=== PATIENT | male | born 1965 | race Caucasian/White ===

== ENCOUNTER 2022-01-18 03:40 | Inpatient (IN) | payer OTHER, SELFPAY ==
[2022-01-18] VITALS (19 sets, daily range): BP systolic 116–189; BP diastolic 71–105; PULSE 56–91; RESP 10–19; TEMP 37; O2SAT 88–96; BMI 28.8
--- NOTE | 2022-01-18 03:41 | XRR_ITS ---
PROCEDURE INFORMATION: Exam: XR Chest Exam date and time: 01/18/2022 3:36 AM Age: 56 years old Clinical indication: Pain and abnormal findings; Abnormal ekg; Chest pressure; Patient HX: Left sided chest pain with diaphoresis. St elevation on 12 lead. ; Additional info: Cp TECHNIQUE: Imaging protocol: XR of the chest. Views: 1 view. COMPARISON: No relevant prior studies available. FINDINGS: Lungs: The lung parenchyma is clear. Pleural spaces: No pneumothorax. No pleural effusion. Heart/Mediastinum: The cardiomediastinal silhouette is within normal limits. Bones/joints: Unremarkable. XR/XR chest 1V portable [id number] IMPRESSION: No acute cardiopulmonary abnormality.
--- NOTE | 2022-01-18 03:42 | ECG_ITS ---
[facility] Test Date: 2022-01-18 Pat Name: Meir Ramsay Department: Room: [facility] Gender: Male Clinical Trial Educator: : 1965 Requested By: Lizabeth Burr Order Number: [id number] Evelyne MD: Iram Albright M.D. Measurements Intervals [place] Rate: 56 P: 63 AL: 178 QRS: 22 QRSD: 132 T: 81 QT: 508 QTc: 491 Interpretive Statements SINUS BRADYCARDIA WITH SINUS ARRHYTHMIA INTRAVENTRICULAR CONDUCTION DELAY [130+ ms QRS DURATION] ST ELEVATION, CONSIDER LATERAL INJURY [MARKED ST ELEVATION W/O NORMALLY INFLECTED T-WAVE IN I/aVL/V5/V6] MARKED ST ELEVATION, CONSIDER INFERIOR INJURY [MARKED ST ELEVATION W/O NORMALLY INFLECTED T-WAVE IN II/aVF] ACUTE [place] No previous ECG available for comparison Electronically Signed On 01-19-2022 11:44:26 CDT by Iram Albright M.D. [id number]
--- NOTE | 2022-01-18 03:43 | ED_ITS ---
HPI - Chest Pain General: Chief Complaint: Chest Pain Stated Complaint: stemi Time Seen by Provider: 01/18/22 03:41 Source: patient and EMS Mode of arrival: EMS Limitations: no limitations History of Present Illness: 56-year-old male states that roughly 2 hours ago he started having chest pain was severe in nature along with diaphoresis and nausea. Patient was brought in EMS under a STEMI alert he has been receiving nitro along with morphine states his pain is improved but still having pain he rates a 2 out of 10 patient is still diaphoretic he is a longtime smoker denies any history of known heart disease. Associated symptoms: Deny abdominal pain, dyspnea, fever(s), nausea or vomiting Review of Systems Const: Denies: fever(s), chills, body aches or change in appetite Eyes: Denies: blurry vision or eye discomfort ENMT: Denies: throat pain or dental pain Card: Reports: chest pain Resp: Denies: dyspnea GI: Denies: abdominal pain, nausea, vomiting or diarrhea : Denies: dysuria Musc: Denies: neck pain or back pain Skin/Breast: Denies: rash Neuro: Denies: headache(s) Psych: Denies: depression Willi/Lymph: Denies: easy bruising All/Imm: Denies: urticaria Physical Exam Const: COMMON NORMALS: patient oriented x3 GENERAL APPEARANCE: in distress OTHER: diaphoretic HENMT: COMMON NORMALS: normocephalic and atraumatic HEAD & SCALP: normocephalic and atraumatic Eye: COMMON NORMALS: Equal, round and reactive pupils present and EOMs intact bilaterally PUPIL: Yes Equal, round and reactive pupils present Neck/C-Spine: COMMON NORMALS: full ROM and supple Chest: COMMONS NORMALS: normal inspection of the chest and normal palpation of entire chest wall Resp: COMMON NORMALS: normal respiratory effort, No retractions, No use of accessory muscles and clear to auscultation bilaterally AUSCULTATION: clear to auscultation bilaterally Cardio: COMMON NORMALS: regular rate, regular rhythm and No murmurs present (Cardio) RATE: regular rate RHYTHM: regular rhythm GI: COMMON NORMALS: Normal to inspection, nondistended, normoactive bowel soun ds present, Soft to palpation, non-tender and no masses PALPATION: Yes Soft to palpation Extremity: COMMON NORMALS: normal to inspection and full ROM Neuro: COMMON NORMALS: patient oriented x3, moves all extremities and no focal motor deficits Psych: COMMON NORMALS: mental status grossly normal, Normal thought process present and cooperative THOUGHT PROCESS: Normal thought process present Skin: COMMON NORMALS: no rashes or lesions noted and no wounds GENERAL SKIN EXAM: no rashes or lesions noted Course Vital Signs: Vital signs: Vital Signs Temperature 98.6 F 01/18/22 03:44 Pulse Rate 59 L 01/18/22 03:44 Respiratory Rate 16 01/18/22 03:44 Blood Pressure 128/73 01/18/22 03:44 Pulse Oximetry 96 01/18/22 03:44 MDM - Chest Pain Medical Decision Making Patient presents here with an ST elevation [place] Horizontal Boring Mill Operator has been in called Dr. Vasques is here at 355 patient given heparin and Plavix and will transfer to the Horizontal Boring Mill Operator EKG Data EKG 1: I personally reviewed and interpreted this EKG as follows: EKG interpretation date: 01/18/22 EKG interpretation time: 03:48 Interpretation: sinus carly hr 56 st elevation II, III,AVF stemi qrs 132 qtc 499 Critical Care Time Critical Care Time: Critical Care Time: Yes Total Critical Care Time: 35 Attestation: The high probability of a clinically significant, sudden or life threatening deterioration of the patient's cv system(s) required my full and direct attention, intervention and personal management. The critical care time is as shown. This time is in addition to time spent performing any reported procedures but includes the following: [x] Data and vital sign review and interpretation [x] Patient assessment, examination and intervention [x] Documentation [x] Medication orders and management Discharge Plan Discharge Patient Disposition: Admitted As Inpatient Clinical Impression: ST elevation (STEMI) myocardial infarction Qualifiers: Involved coronary artery: unspecified coronary artery Qualified Code(s): I21.3 - ST elevation (STEMI) myocardial infarction of unspecified site Condition: Stable Coding Level of Care Code ED Waterproof Material Folder for Adwoa Leong Exam Comprehensive
[2022-01-18] MEDS: aspirin 325 mg Tablet PO (03:45)
[2022-01-18] MEDS: heparin 5,000 unit/mL INJ 1 mL 4000 UNIT IVP (03:45)
[2022-01-18] MEDS: clopidogrel 300 mg Tablet 600 MG PO (03:45)
[2022-01-18] MEDS: sodium chloride 0.9% 500 ML 999 ML IV (03:48)
[2022-01-18] MEDS: sodium chloride 0.9% 1,000 ML 999 ML IV (03:48)
[2022-01-18] MEDS: morphine 4 mg/mL SDV 1 mL IVP ×2 (03:51→04:11)
[2022-01-18] MEDS: ondansetron 2 mg/ML SDV 2 mL 4 MG IVP (03:51)
--- NOTE | 2022-01-18 04:02 | PM.HP ---
Providers/Chief Complaint Admitting Physician: Erick William MD Primary Care Provider: Sameer Dash MD Chief Complaint: stemi History of Present Illness Meir Ramsay is a 56 year old male with no known prior cardiac history has presented with 2 hours of substernal chest pain. It is severe in intensity. Patient also has nausea. Pain has improved since getting morphine by EMS. According to patient since last morning he had been having on and off heartburn sensation in the epigastric region. EKG shows ST elevations in inferior and anterolateral leads. Patient was taken to the cardiac Gas Station Manager emergently. Review of Systems Const: Denies: fever(s), chills, body aches or change in appetite Eyes: Denies: blurry vision or eye discomfort ENMT: Denies: throat pain or dental pain Card: Reports: chest pain Resp: Denies: dyspnea GI: Denies: abdominal pain, nausea, vomiting or diarrhea : Denies: dysuria Musc: Denies: neck pain or back pain Skin/Breast: Denies: rash Neuro: Denies: headache(s) Psych: Denies: depression Willi/Lymph: Denies: easy bruising All/Imm: Denies: urticaria Medications/Allergies Allergies Allergy/AdvReac Type Severity Reaction Status Date / Time No Known Allergies Allergy Verified 01/18/22 03:45 PFSH Acute PFSH: Medical History Hypertension Tobacco abuse Social History Smoking and tobacco status: current every day smoker Vitals/I&O/Wt Last Vital Signs Temp 98.6 F 01/18/22 03:44 Pulse 56 L 01/18/22 04:00 Resp 16 01/18/22 04:00 BP 116/71 01/18/22 04:00 Pulse Ox 96 01/18/22 04:00 Weight last 48 hrs Weight 195 lb Physical Exam Narrative: GENERAL: Patient is alert, awake and oriented x3. [] NECK: No jugular vein distension. [] HEENT: No cyanosis. No icterus. No pallor. [] HEART: Regular S1 and S2. No murmur, rub or gallop. [] LUNGS: Clear to auscultate bilaterally. [] ABDOMEN: Soft, nontender and nondistended. Positive bowel sounds. No guarding, rebound or tenderness. [] CENTRAL NERVOUS SYSTEM: Grossly nonfocal. [] EXTREMITIES: Lower extremities with no edema bilaterally. Pulses palpable in the lower extremities, both dorsalis pedis and posterior tibial. [] A&P Assessment and plan (1) ST elevation (STEMI) myocardial infarction: Status: Acute Qualifiers: Involved coronary artery: unspecified coronary artery Qualified Code(s): I21.3 - ST elevation (STEMI) myocardial infarction of unspecified site (2) Tobacco abuse: Status: Acute (3) Hypertension: Status: Acute Plan Patient has presented with acute ST elevation [place]. He was emergently taken to the cardiac Gas Station Manager for coronary angiogram. Patient underwent coronary angiogram that showed total thrombotic occlusion of left circumflex artery. He underwent successful revascularization with IVÁN x1. Proximal LAD has moderate disease. It will be evaluated with stress test later. Continue aspirin and Plavix for at least 1 year. High intensity statin therapy. Beta-osbaldo and ORTIZ inhibitor's. Order echocardiogram. Transfer to ICU Attestations Medical Necessity Statement*: Care expected to cross 2 midnights. Patient has presented with acute inferior wall ST elevatation Coding Level of Care Code Acute Associate Professor Of Chemistry for Adwoa Leong Diagnoses ST elevation (STEMI) myocardial infarction I21.3 Involved coronary artery: unspecified coronary artery Tobacco abuse Z72.0 Hypertension I10
[2022-01-18 04:07] LABS: Troponin(5th) Baseline 30 ng/L (0-15)
--- NOTE | 2022-01-18 04:08 | XACV_ITS ---
Exam Room: 2 Ht: 175 cm Wt: 134 kg BSA: 2.62 m2 Gender: Male : 1965 Any Known Allergies: No known allergies Exam Priority: Routine Procedure(s): Procedure Description: Diagnostic procedure Procedure Description: PCI procedure Procedure Description: Drug Eluting Coronary Stent Procedure Description: PTCA Procedure Description: Coronary Angiography Diagnostic Cath Status: Emergency Diagnostic Findings * Right Coronary Artery has mild to moderate diffuse disease. * Proximal Left Anterior Descending: moderate 60% stenosis, DARIO: 3 flow. * Mid Circumflex: total thrombotic occlusion, DARIO: 0 flow. * INDICATION:56 year old male with no known prior cardiac history has presented with 2 hours of substernal chest pain. It is severe in intensity. Patient also has nausea. Pain has improved since getting morphine by EMS. According to patient since last morning he had been having on and off heartburn sensation in the epigastric region. EKG shows ST elevations in inferior and anterolateral leads. . * Left Main has no disease. * Coronary angiography shows right dominance. PCI Status: Emergency PCI Indication: Immediate PCI for STEMI Interventional Findings * PROCEDURE DETAIL:We engaged left main artery with XB 3.0 guide catheter. IV heparin was used to maintain an ACT above 250 S. 0.014 run-through guidewire was used to cross totally occluded mid left circumflex artery segment. We will predilated the stenosis with 2.5 x 12 mm noncompliant balloon. This was followed by placement of 3.5 x 15mm resolute [place] drug-eluting stent. At this time final angiogram was performed that showed excellent stent expansion, DARIO-3 flow and no residual stenosis. Guidewire and guide catheters were removed. Patient left the Slope Hoist Operator in a stable condition.. * Mid Circumflex: 100% stenosis treated with a AB TREK 2.50X12 RX BALLOON, and MDT Patti FABY 3.5X15 IVÁN. 0% residual stenosis, DARIO: 3 flow. Conclusions 1. Total thrombotic occlusion of the mid Left circumflex artrey status post successful revascularization with IVÁN x1.. 2. Moderate proximal LAD stenosis. Will be assessed with outpatient stress test. 3. Mid Circumflex was treated with a Balloon, and Drug Eluting Stent. Recommendations * Transfer to ICU. * Continue aspirin and Plavix for at least 1 year. * High intensity statin therapy. * Beta-osbaldo and ORTIZ inhibitor therapy. * Outpatient cardiology follow-up in 4 weeks. * Cardiac rehab referral. Interventional RX Recommendation: PCI w/o planned CABG Diagnostic RX Recommendation: PCI w/o planned CABG Anticoagulation: Heparin Pressures Phase:Rest AO : 144 / 78 ( 109 ) @ 5:26:00 AM 121 / 91 ( 107 ) @ 5:30:00 AM Clinical Evaluation EBL: 5mL-10mL Procedural Details Pre-Procedure Time Out. Identified patient by full name and date of as verbalized by the patient/guarantor. Does the consent match the physician's order: N/A Emergent; Informed Consent not obtained due to time critical life threat. Accurate & Complete Informed Consent: N/A Emergent; Informed Consent not obtained due to time critical life threat. Inpatient/Outpatient History & Physical on Chart: N/A Emergent; Informed Consent not obtained due to time critical life threat. If H&P is completed, is and addenduem needed: N/A Emergent; Informed Consent not obtained due to time critical life threat; If yes, is the addendum complete: N/A Emergent; Informed Consent not obtained due to time critical life threat. Visualize and Verify Site with Patient/Guarantor: N/A. Relevant Radiology Images available: N/A Emergent; Informed Consent not obtained due to time critical life threat. The risks, benefits, and alternatives of sedation and/or procedure were discussed by physician. The patient agrees to continue. Procedure started. [facility] Clinical Fraility Score: 3: Managing Well. Slope Hoist Operator Indications: ACS <= 24 hours. Chest Pain Symptom Assessment: Typical Angina Symptoms. Cardiovascular Instability: Yes, if yes, Persistant Ischemic Symptoms. Correct patient, site and procedure confirmed by cath team. Current diagnosis: STEMI. PERRLA. Strong, equal hand immigration specialist bilaterally. Lungs clear x 5 lobes. IV Site on Arrival: 18 gauge in the right anticubital. IV Site on Arrival: 18 gauge in the left anticubital. IV Fluids: 0.9% NaCl at KVO. 0 mL infused prior to recyclable materials sorter. Oxygen started at 2liters/min via nasal canula. right groin was prepped with chloroprep then draped in the usual sterile fashion. right radial was prepped with chloroprep then draped in the usual sterile fashion. Baseline sample Acquired. HR: 72 BPM. Physician notified. Baseline sample Acquired. HR: 74 BPM. Physician arrived. Physician scrubbed in. Immediate Pre-Procedure Time Out. Correct Patient: Yes; Correct Procedure: Yes; Correct Site: Yes; Correct Patient Position: Yes; Correct Supplies: Yes; Dried Flammable Prep: Yes; Blood Products Available: N/A;. Lidocaine 1% infiltrated to the right radial. Arterial access obtained. 6 tur[place] ca[place] islander JR 4 guide catheter was inserted over the wire. cine of the RCA performed. Guide catheter out. 6 tur[place] islander XB 3.5 guide catheter was inserted over the wire. Inflation number : 1 A AB TREK 2.50X12 RX BALLOON was prepped and advanced across the Mid CX , then inflated to 8 LAURA for 0:18 seconds. Inflation number: 2 The AB TREK 2.50X12 RX BALLOON was reinflated across the Mid CX, to 12 LAURA for 0:08 seconds. Balloon out. Results checked. Inflation Number : 3 A XAVI Armstrong FABY 3.5X15 IVÁN -Lot Number# [id number] was prepped and advanced across the Mid CX. The stent was deployed at 14 LAURA for 0:23 seconds. EXP 2024-11-02. Stent balloon out over wire. Results checked. Wire out. Guide catheter out. ACT drawn. Results 223 seconds. Therapeutic limits - pre-heparin administration 90-150 seconds and monitoring heparin during a vascular procedure >250 seconds. 6 tur[place] islander JR 4 guide catheter was inserted over the wire. PCI Indication : Immediate PCI for STEMI. cine of the RCA performed. Guide catheter out. Dr. William scrubbed out. TR band placed. Hemostasis obtained. A TR Band was successful obtaining hemostatsis at the Right Radial artery insertion site. PERRLA. Strong, equal hand immigration specialist bilaterally. No VTE prophylaxis required. Medication's Wasted: Lidocaine 1% = 5 mL. Medication's Wasted: Nitro = 49.8 mg. Medication's Wasted: Heparin = 4000 units. Total IV fluids: 64 mL. PCI Indication: STEMI. Post-op diagnosis: PCI of the Mid CX. Complications: none. Estimated blood loss: 5mL-10mL. Responsiveness - Normal response to verbal stimuli; alert and oriented, PERRLA. Airway - Unaffected, no intervention required; spontaneous ventilation. Circulation: W/N/L, pulses unchanged. Nausea/Vomiting: No. Procedure completed. Patient transferred by bed to ICU. Vital chart was stopped. Access Site Site: Right Radial artery Sheath Size: 6 Fr Hemostasis Method: TR Band Hemostasis Success: Successful Procedure Medications Start: 4:20 AM Stop: 4:20 AM Medication: Versed Amount: 1 mg Route: I.V. Start: 4:20 AM Stop: 4:20 AM Medication: Fentanyl Amount: 50 mcg Route: I.V. Start: 4:21 AM Stop: 4:21 AM Medication: Nitrogylcerin Amount: 200 mcg Route: I.A. Start: 4:23 AM Stop: 4:23 AM Medication: Heparin Amount: 6000 units Route: I.V. Start: 4:25 AM Stop: 4:25 AM Medication: Versed Amount: 1 mg Route: I.V. Start: 4:39 AM Stop: 4:39 AM Medication: Heparin Amount: 2000 units Route: I.V. I, the attending physician, have reviewed and verified all procedure medications. Yes, all medications given per verbal order Report Signatures Finalized by Erick William MD on 01/18/2022 09:46 AM
--- NOTE | 2022-01-18 04:10 | PC.NURSE ---
Cath team at bedside at this time
--- NOTE | 2022-01-18 04:12 | PC.NURSE ---
flower shop laborer/designer transporting patient to flower shop laborer/designer.
--- NOTE | 2022-01-18 05:35 | USCV_ITS ---
Meir Ramsay Age: 56 Gender: M : 1965 Exam Date: 01/18/2022 09:24 Ordering Phys: Erick William M.D ([email or web address]) Technologist: DLEILAH Exam Location: [facility] [place] Indication: post STEMI; no hx cardiac intervention BP: 157 / 99 HR: 69 Rhythm: Sinus Technical Quality: Adequate MEASUREMENTS (Male / Female) Normal Values 2D ECHO LV Diastolic Diameter PLAX 5.3 cm 4.2 - 5.9 / 3.9 - 5.3 cm LV Systolic Diameter PLAX 3.5 cm IVS Diastolic Thickness 1.5 cm 0.6 - 1.0 / 0.6 - 0.9 cm IVS Systolic Thickness 2.3 cm LVPW Diastolic Thickness 1.5 cm 0.6 - 1.0 / 0.6 - 0.9 cm LVPW Systolic Thickness 1.6 cm LVOT Diameter 2.0 cm LV Ejection Fraction 2D Teich 63.5 % LV Ejection Fraction MOD 2C 57.8 % LV Ejection Fraction 2C AL 57.5 % LA Diameter 3.8 cm LA Width 3.0 cm LA Height 4.8 cm RA Width 3.6 cm RA Height 3.6 cm Aorta at Sinotubular Diameter 3.2 cm IVC Diameter 2.0 cm M-MODE Aortic Annulus Diameter 3.6 cm LA Ao Ratio MM 1.0 MV E Point Septal Separation 0.3 cm DOPPLER AV Peak Velocity 124.0 cm/s LVOT Peak Velocity 67.0 cm/s AV Area Cont Eq vti 1.8 cm squared AV Area Cont Eq pk 1.7 cm squared MV Area PHT 3.7 cm squared Mitral E to A Ratio 0.7 MV E' Velocity 34.0 cm/s Mitral E to MV E' Ratio 8.6 Mitral E to LV E' Lateral Ratio 8.2 Mitral E to LV E' Septal Ratio 9.1 TR Peak Velocity 253.0 cm/s TR Peak Gradient 25.6 mmHg TV Peak E Velocity 49.0 cm/s Right Atrial Pressure 5.0 mmHg Pulmonary Artery Systolic Pressu 30.6 mmHg PV Peak Velocity 86.0 cm/s FINDINGS Left Ventricle Normal left ventricular size. LV systolic function is normal with EF of 50-55%.No regional wall motion abnormalities. Grade 1 diastolic dysfunction Right Ventricle The right ventricle is normal in size and function. Right Atrium The right atrium is normal in size. Left Atrium The left atrium is normal in size. Mitral Valve Structurally normal mitral valve without significant stenosis or prolapse. There is mild mitral regurgitation. Aortic Valve Structurally normal aortic valve without significant sclerosis or stenosis. There is no aortic regurgitation. Tricuspid Valve Structurally normal tricuspid valve without significant stenosis. Mild tricuspid regurgitation. Insufficient TR jet to calculate RVSP Pulmonic Valve Not well visualized Pericardium Normal pericardium without effusion. Aorta Normal ascending aorta dimension. IVC CONCLUSIONS LV systolic function is normal with EF of 50-55% Grade 1 diastolic dysfunction Mild mitral regurgitation Mild tricuspid regurgitation No comparison studies are available Erick William MD (Electronically Signed) Final Date: 18 Jan 2022 12:33 S
--- NOTE | 2022-01-18 05:42 | ECG_ITS ---
[facility] Test Date: 2022-01-18 Pat Name: Meir Ramsay Department: Room: [facility]08 Gender: Male Herpetology Teacher: : 1965 Requested By: Lizabeth Burr Order Number: [id number] Evelyne MD: Iram Albright M.D. Measurements Intervals [place] Rate: 77 P: 77 MI: 150 QRS: -74 QRSD: 125 T: 75 QT: 430 QTc: 487 Interpretive Statements SINUS RHYTHM RIGHT BUNDLE BRANCH BLOCK LEFT ANTERIOR FASCICULAR BLOCK MODERATE T-WAVE ABNORMALITY, CONSIDER LATERAL ISCHEMIA Compared to ECG 01/18/2022 03:48:58 Right bundle-branch block now present Left anterior fascicular block now present T-wave abnormality now present Possible ischemia now present Sinus bradycardia no longer present ST (T wave) deviation no longer present Myocardial infarct finding no longer present Electronically Signed On 01-18-2022 22:09:36 CDT by Iram Albright M.D. [id number]
[2022-01-18] MEDS: sodium chloride 0.9% 1,000 ML 100 ML IV (05:56)
[2022-01-18 06:28] LABS: Basophils % 0.3 %; Eosinophils % 0.1 %; Hematocrit 47.3 % (42.0-52.0); Hemoglobin 15.8 g/dL (11.7-16.6); Lymphocytes # 1.2 10^3/uL (0.8-4.8); Mean Corpuscular HGB Conc 33.4 g/dL (30.0-36.0); Mean Corpuscular Hemoglobin 31.5 pg (28.0-34.0); Mean Corpuscular Volume 94.2 fl (80-94); Mean Platelet Volume 10.1 fL (7.4-10.4); Monocytes # 0.6 10^3/uL (0.2-0.9); Monocytes % 6.3 %; Neutrophils % 80.8 %; Nucleated Red Blood Cells % 0 %; Platelet Count 188 10^3/cmm (130-400); Red Blood Count 5.02 10^6/uL (4.1-5.3); White Blood Count 9.7 10^3/uL (4.0-10.0)
[2022-01-18] MEDS: metoprolol tartrate 25 mg Tablet PO ×2 (07:03→18:05)
[2022-01-18 07:05] LABS: Anion Gap 17.7 (5-19); Blood Urea Nitrogen 12 mg/dL (6-20); Calcium 8.7 mg/dL (8.5-10.5); Carbon Dioxide 17 mmol/L (22-29); Chloride 98 mmol/L (98-107); Chol HDL Ratio 4.53 mg/dL (1.0-5.00); Cholesterol 163 mg/dL (0-200); Estmated Average Glucose 143; Glomerular Filtration Rate 99.3 mL/min (90-130); Glucose 163 mg/dL (65-115); HDL Cholesterol 36 mg/dL (60-100); Hemoglobin A1C 6.6 % (4.0-6.0); LDL Cholesterol Calculated 106 mg/dL (50-129); LDL HDL Ratio 2.94 RATIO (0.00-3.22); Osmolality Calculated 271 mOsm/kg (285-295); Potassium 3.7 mmol/L (3.5-5.1); Sodium 129 mmol/L (136-145); Triglycerides 105 mg/dL (0-150)
[2022-01-18 07:21] LABS: Troponin 5 2HR 1822 ng/L (0-15); Troponin 5 2HR Delta 1792 ABS# (0-10)
--- NOTE | 2022-01-18 07:31 | PC.NURSE ---
Reported elevated blood pressure to Dr. William. Orders to give 0900 lopressor early.
[2022-01-18] MEDS: clopidogrel 75 mg Tablet PO (08:57)
[2022-01-18] MEDS: aspirin 81 mg EC Tablet PO (08:57)
--- NOTE | 2022-01-18 09:38 | PC.CHAP ---
Pastoral Care Encounter/Spiritual Assessment Type of Contact [] Declined project accountant visit [] Patient/Family/Request visit [] Outpatient visit [] Follow-up visit [] Physician referral [] Code/Alert [x] Routine visit [] Staff referral [] Actively dying [] Patient sleeping [x] Family support [] [] Out of room [] Palliative care [] [] Receiving care in room [] Pre-surgical visit [] Trauma [] Long length of stay [x] ICU visit [] Other: Relational/Emotional Strength [] Patient feels connected with others/family/visitors/staff [] Distress [] Loneliness/isolation [] Abandonment Spirituality of Patient [] Person of Shaila [] Attends Buddhism of their Shaila [] Believes in Prayer [] Reads Bible or Judaism materials [] There are Spiritual issues to be addressed Grease Buffer Interventions [x] Prayer [x] Active listening [x] Non-anxious presence [x] Spiritual/emotional support [] Crisis/trauma care [] Spiritual counseling [] Bereavement support [] Provided bereavement packet [] Provided Bible/devotional materials [] Provided toy/stuffed animal, coloring book to patient or family member [] Provided Communion [] Anointing/[place] [] Salvation [x] Completed spiritual assessment [] Other: Impact on Illness or Injury [] Angry [] Fearful [] Anxious [] Often cries [] Exhaustion [] Unable to work [] Unable to attend amish [] Unable to walk/stand [] Unable to read [] Unable to drive [] Unable to eat/drink [] Unable to sleep [] Unable to be with family [] Patient intubated [] Other: Summary patient [id number] better.. regional maintenance manager part of hospice Time spent with patient 5 min
--- NOTE | 2022-01-18 09:42 | ECG_ITS ---
[facility] Test Date: 2022-01-18 Pat Name: Meir Ramsay Department: Room: [facility] Gender: Male Vault Worker: : 1965 Requested By: Lizabeth Burr Order Number: [id number] Evelyne MD: Iram Albright M.D. Measurements Intervals [place] Rate: 65 P: 70 NV: 165 QRS: 56 QRSD: 109 T: 59 QT: 405 QTc: 422 Interpretive Statements SINUS RHYTHM WITH SINUS ARRHYTHMIA PROBABLE INFERIOR MYOCARDIAL INFARCTION , PROBABLY OLD [35 ms Q WAVE IN II/aVF] Compared to ECG 01/18/2022 06:08:46 Myocardial infarct finding now present Right bundle-branch block no longer present Left anterior fascicular block no longer present T-wave abnormality no longer present Possible ischemia no longer present Electronically Signed On 01-18-2022 22:08:34 CDT by Iram Albright M.D. [id number]
[2022-01-18 10:44] LABS: Troponin 5 6HR 4864 ng/L (0-15)
[2022-01-18 10:45] LABS: Troponin 5 6HR Delta 4834 ng/L (0-12)
[2022-01-18] MEDS: lisinopril 10 mg Tablet PO (11:17)
[2022-01-18] MEDS: atorvastatin 40 mg Tablet 80 MG PO (21:54)
[2022-01-19] VITALS (9 sets, daily range): BP systolic 148–174; BP diastolic 79–106; PULSE 56–83; O2SAT 94–97
[2022-01-19] MEDS: clopidogrel 75 mg Tablet PO (07:59)
[2022-01-19] MEDS: metoprolol tartrate 25 mg Tablet PO ×2 (07:59→09:07)
[2022-01-19] MEDS: lisinopril 10 mg Tablet PO ×2 (07:59→09:07)
[2022-01-19] MEDS: aspirin 81 mg EC Tablet PO (07:59)
[2022-01-19 09:14] LABS: Basophils # 0.1 10^3/uL (0.0-0.1); Basophils % 0.6 %; Eosinophils % 0.3 %; Hematocrit 44.5 % (42.0-52.0); Hemoglobin 14.6 g/dL (11.7-16.6); Lymphocytes # 2.4 10^3/uL (0.8-4.8); Lymphocytes % 26.8 %; Mean Corpuscular HGB Conc 32.8 g/dL (30.0-36.0); Mean Corpuscular Hemoglobin 30.6 pg (28.0-34.0); Mean Corpuscular Volume 93.3 fl (80-94); Mean Platelet Volume 10.4 fL (7.4-10.4); Monocytes # 0.6 10^3/uL (0.2-0.9); Monocytes % 6.5 %; Neutrophils # 5.75 10^3/uL (1.8-7.7); Neutrophils % 65.5 %; Nucleated Red Blood Cells % 0 %; Platelet Count 192 10^3/cmm (130-400); Red Blood Count 4.77 10^6/uL (4.1-5.3); Red Cell Distribution Width 13.2 % (12.1-15.1); White Blood Count 8.8 10^3/uL (4.0-10.0)
[2022-01-19 09:23] LABS: Anion Gap 16.1 (5-19); Blood Urea Nitrogen 12 mg/dL (6-20); Calcium 9.2 mg/dL (8.5-10.5); Carbon Dioxide 23 mmol/L (22-29); Chloride 100 mmol/L (98-107); Glomerular Filtration Rate 99.3 mL/min (90-130); Glucose 214 mg/dL (65-115); Osmolality Calculated 286 mOsm/kg (285-295); Potassium 4.1 mmol/L (3.5-5.1); Sodium 135 mmol/L (136-145)
--- NOTE | 2022-01-19 10:04 | P.DS_ITS ---
Discharge Providers Date of Admission: 01/18/22 05:19 Date of Discharge: January 19, 2022 Attending Provider at Admission: Erick William M.D Attending Provider at Discharge: Erick William M.D Primary Care Provider: Sameer Dash MD Diagnoses at Discharge Discharge Diagnosis (1) ST elevation (STEMI) myocardial infarction: Qualifiers: Involved coronary artery: unspecified coronary artery Qualified Code(s): I21.3 - ST elevation (STEMI) myocardial infarction of unspecified site (2) Tobacco abuse: Status: Acute (3) Hypertension: Status: Acute Reason for Visit Reason for Visit: stemi Brief History: ?56 year old male with no known prior cardiac history has presented with 2 hours of substernal chest pain.? It is severe in intensity.? Patient also has nausea.? Pain has improved since getting morphine by EMS.? According to patient since last morning he had been having on and off heartburn sensation in the epigastric region.? EKG shows ST elevations in inferior and anterolateral leads.? Patient was taken to the cardiac Food Science Technician emergently. Hospital Course Hospital Course ?56 year old male with no known prior cardiac history has presented with 2 hours of substernal chest pain.? It is severe in intensity.? Patient also has nausea.? Pain has improved since getting morphine by EMS.? According to patient since last morning he had been having on and off heartburn sensation in the epigastric region.? EKG shows ST elevations in inferior and anterolateral leads.? Patient was taken to the cardiac Food Science Technician emergently. Coronary angiogram demonstrated totally occluded mid left circumflex artery that was the culprit vessel for STEMI. He underwent successful revascularization with IVÁN x1. Patient stayed stable and was discharged home on dual antiplatelet therapy with aspirin and Plavix. Physical Exam Narrative: GENERAL: Patient is alert, awake and oriented x3. [] NECK: No jugular vein distension. [] HEENT: No cyanosis. No icterus. No pallor. [] HEART: Regular S1 and S2. No murmur, rub or gallop. [] LUNGS: Clear to auscultate bilaterally. [] ABDOMEN: Soft, nontender and nondistended. Positive bowel sounds. No guarding, rebound or tenderness. [] CENTRAL NERVOUS SYSTEM: Grossly nonfocal. [] EXTREMITIES: Lower extremities with no edema bilaterally. Pulses palpable in the lower extremities, both dorsalis pedis and posterior tibial. [] Discharge Data Studies Completed and Pending Completed Studies During Hospitalization Category Date Time Status PHOTO MASK CLEANER request for service Stat Exams 01/18/22 04:08 Completed XR chest 1V portable [id number] Stat Exams 01/18/22 03:41 Completed CV. echo complete* [id number] Routine Ultrasound 01/18/22 05:35 Completed Radiology Impressions Chest X-Ray 01/18/22 03:41 IMPRESSION: No acute cardiopulmonary abnormality. Laboratory Results WBC 8.8 10^3/uL (4.0-10.0) 01/19/22 08:55 RBC 4.77 10^6/uL (4.1-5.3) 01/19/22 08:55 Hgb 14.6 g/dL (11.7-16.6) 01/19/22 08:55 Hct 44.5 % (42.0-52.0) 01/19/22 08:55 MCV 93.3 fl (80-94) 01/19/22 08:55 MCH 30.6 pg (28.0-34.0) 01/19/22 08:55 MCHC 32.8 g/dL (30.0-36.0) 01/19/22 08:55 RDW 13.2 % (12.1-15.1) 01/19/22 08:55 Plt Count 192 10^3/cmm (130-400) 01/19/22 08:55 MPV 10.4 fL (7.4-10.4) 01/19/22 08:55 Neut % (Auto) 65.5 % 01/19/22 08:55 Lymph % (Auto) 26.8 % 01/19/22 08:55 [place] % (Auto) 6.5 % 01/19/22 08:55 Eos % (Auto) 0.3 % 01/19/22 08:55 Baso % (Auto) 0.6 % 01/19/22 08:55 Neut # (Auto) 5.75 10^3/uL (1.8-7.7) 01/19/22 08:55 Lymph # (Auto) 2.4 10^3/uL (0.8-4.8) 01/19/22 08:55 [place] # (Auto) 0.6 10^3/uL (0.2-0.9) 01/19/22 08:55 Eos # (Auto) 0.0 10^3/uL (0.0-0.8) 01/19/22 08:55 Baso # (Auto) 0.1 10^3/uL (0.0-0.1) 01/19/22 08:55 Nucleated RBC % (auto) 0 % 01/19/22 08:55 Nucleated RBCs # 0.0 /100WBC 01/19/22 08:55 Sodium 135 mmol/L (136-145) L 01/19/22 08:55 Potassium 4.1 mmol/L (3.5-5.1) 01/19/22 08:55 Chloride 100 mmol/L (98-107) 01/19/22 08:55 Carbon Dioxide 23 mmol/L (22-29) 01/19/22 08:55 Anion Gap 16.1 (5-19) 01/19/22 08:55 BUN 12 mg/dL (6-20) 01/19/22 08:55 Creatinine 0.8 mg/dL (0.7-1.2) 01/19/22 08:55 GFR Calculation 99.3 mL/min (90-130) 01/19/22 08:55 Glucose 214 mg/dL (65-115) H 01/19/22 08:55 Estimat Average Glucose 143 01/18/22 06:20 Hemoglobin A1c 6.6 % (4.0-6.0) H 01/18/22 06:20 Calculated Osmolality 286 mOsm/kg (285-295) 01/19/22 08:55 Calcium 9.2 mg/dL (8.5-10.5) 01/19/22 08:55 Troponin T Baseline 30 ng/L (0-15) H 01/18/22 03:42 Troponin T 120 Minute 1822 ng/L (0-15) H 01/18/22 06:20 Delta Troponin T 1792 ABS# (0-10) H* 01/18/22 06:20 Troponin T Hi Sens 6Hr 4864 ng/L (0-15) H 01/18/22 09:29 Troponin T Hi Sens 6Hr Delta 4834 ng/L (0-12) H* 01/18/22 09:29 Triglycerides 105 mg/dL (0-150) 01/18/22 06:20 Cholesterol 163 mg/dL (0-200) 01/18/22 06:20 LDL Cholesterol, Calc 106 mg/dL (50-129) 01/18/22 06:20 HDL Cholesterol 36 mg/dL (60-100) L 01/18/22 06:20 LDL/HDL Ratio 2.94 RATIO (0.00-3.22) 01/18/22 06:20 Cholesterol/HDL Ratio 4.53 mg/dL (1.0-5.00) 01/18/22 06:20 Vitals Last Vital Signs Temp 98.6 F 01/18/22 03:44 Pulse 64 01/19/22 06:20 Resp 14 01/18/22 23:00 BP 152/90 01/19/22 06:20 Pulse Ox 96 01/19/22 06:20 Discharge Plan Discharge Patient Disposition: Home Condition: Stable Prescriptions: New atorvastatin 40 mg Tablet 80 mg PO BEDTIME Qty: 90 3RF lisinopril 20 mg Tablet 20 mg PO DAILY Qty: 90 3RF clopidogrel 75 mg Tablet 75 mg PO DAILY Qty: 90 3RF aspirin 81 mg Tablet,Delayed Release (Dr/Ec) 81 mg PO DAILY Qty: 90 3RF metoprolol tartrate 50 mg Tablet 50 mg PO BID@0900,2100 Qty: 120 3RF Discharge Orders: Discharge Order (Routine); Ordered 01/19/22 Ordered By: Erick William Referrals: Xuan Estrada FNP [Staff Physician] - (will establish new patient status , This appointment scheduled with Xuan SAWANT for date of February 02, 2022 at time of 10:00 am) Erick William M.D [Physician] - 1 month ( February --2:30pm) Geraldine Reyes FNP [Nurse Practitioner] - 4-7 days (this follow up appointment has been scheduled . Please follow with Geraldine Reyes APN Nurse will need wound check and lab test post angiogram. January 26, 2022 at time of 10:15 am ) Discharge Diet: Cardiac and Diabetic Discharge Activity: Increase activity as tolerated Patient Instructions: Metoprolol (By mouth), Lisinopril (By mouth), Aspirin (By mouth), Clopidogrel (By mouth) (Plavix), Coronary Angioplasty (DC), Heart Healthy Diet (DC), Basic Carbohydrate Counting (DC), Coronary Intravascular Stent Placement (DC), Coronary Angioplasty (DC), Opioid Safety, Post Angiogram Home Care Instructions, Post Heart Attack Stoplight Activity Restrictions/Additional Instructions: Please do not lift more than 5 pounds of weight for the next 5 days Discharge Attestations Time Spent in Discharge Care*: greater than 30 min Quality Metrics Clinical Quality Measures [ Acute Myocardial Infaction { Clinical Trial Participant: No; Contraindication to aspirin: None; Aspirin prescribed; Contraindication to statin: None; Statin prescribed; Contraindication to PCI: None; PCI performed;}] Coding Level of Care Code Acute Chg FW DC note Diagnoses ST elevation (STEMI) myocardial infarction I21.3 Involved coronary artery: unspecified coronary artery Tobacco abuse Z72.0 Hypertension I10
== END 2022-01-19 11:02 | disposition home or self-care (01) | DRG 247 ==
LOC: ER 04:07 → CCL 04:10 → ICU 05:32
PROVIDERS: Admitting Provider Internal Medicine; Emergency Provider Emergency Medicine; PCP Internal Medicine; Visit Provider Internal Medicine
PROC: 027034Z Dilation of Coronary Artery, One Artery with Drug-eluting Intraluminal Device, Percutaneous Approach (ICD-10-PCS; principal; 2022-01-18 04:00)
PROC: 027034Z Dilation of Coronary Artery, One Artery with Drug-eluting Intraluminal Device, Percutaneous Approach (ICD-10-PCS; 2022-01-18 04:00)
DX: I21.21 ST elevation (STEMI) myocardial infarction involving left circumflex coronary artery (principal); F17.200 Nicotine dependence, unspecified, uncomplicated; I10 Essential (primary) hypertension; I25.10 Atherosclerotic heart disease of native coronary artery without angina pectoris
CPT/HCPCS: 36415; 71045; 80048; 80061; 83036; 84484; 85025; 85347; 93005; 93306; 93454; 96360; 96374; 96375; 96376; 99152; 99153; 99285; C1725; C1769; C1874; C1887; C1894; C9600; J1644; J2250; J2270; J2405; J3010; J3490; J7030; J7040; Q9967

== ENCOUNTER → 2022-01-26 12:09 | Outpatient (BNVA) | payer OTHER, SELFPAY | PROVIDERS: PCP Nurse Practitioner Family; Visit Provider Nurse Practitioner Family | DX: I25.10 Atherosclerotic heart disease of native coronary artery without angina pectoris (principal); I10 Essential (primary) hypertension | CPT/HCPCS: 80048 ==

== ENCOUNTER 2022-03-08 06:31 | Outpatient (CLI) | payer OTHER, SELFPAY ==
[2022-03-08 06:38] VITALS: BMI 28.0
--- NOTE | 2022-03-08 06:39 | ECG_ITS ---
[facility] Test Date: 2022-03-08 Pat Name: Meir Ramsay Department: Room: Gender: Male Automotive Service Professional: Yumiko Cardona : 1965 Requested By: Geraldine Reyes Order Number: [id number] Evelyne MD: Erick William M.D. Interpretive Statements NAME OF STUDY: LEXISCAN SESTAMIBI STRESS TEST INDICATION: [stemi, ] Procedure: At the baseline, the blood pressure was 143/83 mmHg with a heart rate of 72 bpm. The electrocardiogram showed normal sinus rhythm, normal axis with normal ST and T's. The Lexiscan was infused over a period of 20 seconds. A total of 0.4 mg of Lexiscan was infused. The stress phase was continued for a total of 5 minutes. Heart rate was at the end of stress phase was 83 bpm and a blood pressure of 148/82 mmHg. The EKG at the peak infusion revealed since normal sinus rhythm with no significant ST-T wave changes. Sestamibi was injected 20 seconds after the Lexiscan infusion. Blood pressure at the end of recovery phase was 143/80 mmHg with a heart rate of 77 bpm. Conclusion: 1. Normal EKG response to Lexiscan infusion 2. No Lexiscan induced chest pain or cardiac arrhythmia. 3. Normal blood pressure and heart rate response. 4. Sestamibi/sestamibi perfusion scan pending; see separate report. Electronically Signed On 03-18-2022 12:26:08 CDT by Erick William M.D. [id number]
--- NOTE | 2022-03-08 06:39 | NMCV_ITS ---
NM isabel perf SPECT r/s* [id number] Meir Ramsay Age: 57 Gender: M : 1965 Exam Date: 03/08/2022 07:59 Ordering Phys: Geraldine Reyes Technologist: SHANON Bush Exam Location: [facility] Indications: CORONARY ARTERY DISEASE STRESS TEST [facility] IMAGE PROTOCOL Rest/Stress 1 Lexiscan Day Radiopharmaceutical Dose (mCi) Administration Site Administered by Rest: Tc-99m 11.0 IV SHANON Rachel Sestamibi Stress:Tc-99m 32.8 IV SHANON Rachel Sestamibi Rest: 08-Mar-2022 60 Discovery 630 Stress: 08-Mar-2022 30 Discovery 630 0.4mg Lexiscan. Images obtained in supine and prone position. SPECT RESULTS Technical Quality: Excellent Raw Data Analysis: Normal Image Corrections: No attenuation or motion correction applied Summed Stress Score: 15 Summed Rest Score: 17 Summed Difference Score: 1 PERFUSION FINDINGS There is a large sized, fixed perfusion defect seen in the apical inferior, inferior, inferolateral and lateral bertrand. This is consistent with large sized prior infarct in RCA and left circumfle artery territory FUNCTIONAL RESULTS (calculated via Gated SPECT) Stress Image LV EF (%): 50 Stress EDV (mL):155 TID: 1.08 Stress ESV (mL):78 FUNCTIONAL FINDINGS: There is normal left ventricular systolic function. IMPRESSIONS 1. Abnormal myocardial perfusion imaging with large sized prior infarct seen in the left circumflex artery and RCA. No evidence of ischemia is seen 2. LV systolic function is borderline normal Erick William MD (Electronically Signed) Final Date: 08 March 2022 10:55 S
[2022-03-08] MEDS: regadenoson 0.4 Mg/5 ml Syringe IVP (08:30)
[2022-03-08 08:46] VITALS: BP 143/80; PULSE 79
== END 2022-03-08 06:32 | disposition home or self-care (01) ==
LOC: CDL 06:34
PROVIDERS: PCP Nurse Practitioner Family; Visit Provider Nurse Practitioner Family
DX: I25.10 Atherosclerotic heart disease of native coronary artery without angina pectoris (principal)
CPT/HCPCS: 78452; 93017; A9500; J2785

== ENCOUNTER 2023-02-21 06:35 | Emergency (ER) | payer OTHER, SELFPAY ==
[2023-02-21 06:47] VITALS: BP 176/122; PULSE 77; RESP 15; TEMP 36.9; O2SAT 98; BMI 28.1
--- NOTE | 2023-02-21 06:52 | ECG_ITS ---
[facility] Test Date: 2023-02-20 Pat Name: Meir Ramsay Department: Room: Gender: Male Tube Bender: : 1965 Requested By: Damian Hauser Order Number: [id number] Evelyne MD: Luis Fernando Richmond M.D. Measurements Intervals [place] Rate: 89 P: 49 [place]: 154 QRS: 23 QRSD: 90 T: 39 QT: 376 QTc: 459 Interpretive Statements SINUS RHYTHM POSSIBLE LEFT ATRIAL ENLARGEMENT [-0.1mV P-WAVE IN V1/V2] NONSPECIFIC ST & T-WAVE ABNORMALITY Compared to ECG 01/18/2022 09:13:03 T-wave abnormality now present Sinus arrhythmia no longer present Myocardial infarct finding no longer present Electronically Signed On 02-22-2023 10:04:34 CDT by Luis Fernando Richmond M.D. [id number]
--- NOTE | 2023-02-21 06:52 | XR_ITS ---
WS: [id number] Exam: XR chest 1V portable [id number] Date/Time of Exam: 02/21/2023 7:07 AM Reason For Exam: chest pain Comparison 01/18/2022. Findings: The lungs are clear and fully expanded. Costophrenic angles are sharp. No infiltrates. Bronchovascula r relief appears normal. Cardiac silhouette is unremarkable. Bony elements are intact. XR/XR chest 1V portable [id number] IMPRESSION: Unremarkable chest radiograph.
[2023-02-21 07:06] LABS: Basophils # 0.1 10^3/uL (0.0-0.1); Eosinophils # 0.1 10^3/uL (0.0-0.8); Eosinophils % 1.6 %; Hematocrit 46.4 % (42.0-52.0); Hemoglobin 15.9 g/dL (11.7-16.6); Lymphocytes # 2.9 10^3/uL (0.8-4.8); Lymphocytes % 39.5 %; Mean Corpuscular HGB Conc 34.3 g/dL (30.0-36.0); Mean Corpuscular Hemoglobin 31.4 pg (28.0-34.0); Mean Corpuscular Volume 91.5 fl (80-94); Monocytes # 0.9 10^3/uL (0.2-0.9); Monocytes % 12.2 %; Neutrophils # 3.32 10^3/uL (1.8-7.7); Neutrophils % 45.3 %; Nucleated Red Blood Cells % 0 %; Platelet Count 218 10^3/cmm (130-400); Red Blood Count 5.07 10^6/uL (4.1-5.3); Red Cell Distribution Width 12.7 % (12.1-15.1); White Blood Count 7.3 10^3/uL (4.0-10.0)
--- NOTE | 2023-02-21 07:08 | ED_ITS ---
HPI - Chest Pain General: Chief Complaint: Chest Pain Stated Complaint: cp Time Seen by Provider: 02/21/23 06:42 History of Present Illness: Patient presents to the ER with left-sided chest pressure. Pain started about 6:00 this morning lasted about 30 minutes. Pain was resolving on its own and then the patient took a nitro and the pain totally went away. Patient does have a 1 stent and has had a history of heart attack approximately 1 year ago. The stent was placed here. This time patient did get diaphoretic. Patient denies any shortness of breath nausea vomiting. Patient is currently on aspirin 81 mg and Plavix 75 mg daily. Patient denies doing anything strenuous when the pressure started. Pain did not radiate. Review of Systems General: Reports: 10 or more systems reviewed and unremarkable except in HPI and below PFSH ED PFSH: Medical History Atherosclerosis of coronary artery Hypertension ST elevation (STEMI) myocardial infarction Tobacco abuse Social History Smoking and tobacco status: current every day smoker Physical Exam Const: COMMON NORMALS: no acute distress, average body habitus, patient oriented x3, no limitations, healthy appearing, alert and well nourished HENMT: COMMON NORMALS: normocephalic, atraumatic, hearing grossly normal bilaterally, external ears normal and Normal external nose present HEAD & SCALP: normocephalic and atraumatic NOSE: Normal external nose present EXTERNAL EAR: Yes external ears normal Eye: COMMON NORMALS: Equal, round and reactive pupils present, EOMs intact bilaterally, conjunctivae normal and no scleral icterus CONJUNCTIVA: Yes conjunctivae normal PUPIL: Yes Equal, round and reactive pupils present Neck/C-Spine: COMMON NORMALS: no JVD Chest: COMMONS NORMALS: normal inspection of the chest and normal palpation of entire chest wall Resp: COMMON NORMALS: normal respiratory effort, No retractions, No use of accessory muscles and clear to auscultation bilaterally AUSCULTATION: clear to auscultation bilaterally Cardio: COMMON NORMALS: no JVD, regular rate, regular rhythm, S1 normal heart sound present, S2 normal heart sound present, No gallops present (Cardio), No clicks present (Cardio), No murmurs present (Cardio) and No rub (Cardio) RATE: regular rate RHYTHM: regular rhythm HEART SOUNDS: S1 normal heart sound present and S2 normal heart sound present GI: COMMON NORMALS: Normal to inspection, nondistended, normoactive bowel sounds present, Soft to palpation, non-tender, No hepatosplenomegaly present and no masses PALPATION: Yes Soft to palpation and Yes No hepatosplenomegaly present : COMMON NORMALS: Yes no CVA tenderness BLADDER/KIDNEY EXAM: Yes no CVA tenderness Back/Pelvis: COMMON NORMALS: no CVA tenderness Neuro: COMMON NORMALS: patient oriented x3 SENSORIUM/ORIENTATION: Yes alert Course Vital Signs: Vital signs: Vital Signs Temperature 98.4 F 02/21/23 06:47 Pulse Rate 66 02/21/23 09:30 Respiratory Rate 15 02/21/23 06:47 Blood Pressure 150/92 02/21/23 09:30 Pulse Oximetry 98 02/21/23 09:30 Oxygen Delivery Me thod Room Air 02/21/23 07:21 MDM - Chest Pain Medical Decision Making Patient presents to the ER with left-sided chest pressure that went away. After about an hour. Patient does have a history of a stent approximately 1 year ago. Patient was worked up in normal cardiac fashion with serial troponin and serial EKGs and lab work all of which were benign. Patient stayed pain-free during his entire stay. Patient blood pressure was on the higher side. Patient was told to keep blood pressure log and follow-up with his PCP in approximately 1 week for possible blood pressure medicine adjustment. Differential Diagnosis Unlikely acute massive pulmonary embolism, acute respiratory failure, acute myocardial infarction, cardiac arrest or sudden cardiac Medical Records I reviewed the patient's medical records. Lab Data I reviewed the patient's lab results. 02/21/23 06:52 02/21/23 06:52 Radiology Impressions Chest X-Ray 02/21/23 06:52 IMPRESSION: Unremarkable chest radiograph. Laboratory Results WBC 7.3 10^3/uL (4.0-10.0) 02/21/23 06:52 RBC 5.07 10^6/uL (4.1-5.3) 02/21/23 06:52 Hgb 15.9 g/dL (11.7-16.6) 02/21/23 06:52 Hct 46.4 % (42.0-52.0) 02/21/23 06:52 MCV 91.5 fl (80-94) 02/21/23 06:52 MCH 31.4 pg (28.0-34.0) 02/21/23 06:52 MCHC 34.3 g/dL (30.0-36.0) 02/21/23 06:52 RDW 12.7 % (12.1-15.1) 02/21/23 06:52 Plt Count 218 10^3/cmm (130-400) 02/21/23 06:52 MPV 10.0 fL (7.4-10.4) 02/21/23 06:52 Neut % (Auto) 45.3 % 02/21/23 06:52 Lymph % (Auto) 39.5 % 02/21/23 06:52 [place] % (Auto) 12.2 % 02/21/23 06:52 Eos % (Auto) 1.6 % 02/21/23 06:52 Baso % (Auto) 1.0 % 02/21/23 06:52 Neut # (Auto) 3.32 10^3/uL (1.8-7.7) 02/21/23 06:52 Lymph # (Auto) 2.9 10^3/uL (0.8-4.8) 02/21/23 06:52 [place] # (Auto) 0.9 10^3/uL (0.2-0.9) 02/21/23 06:52 Eos # (Auto) 0.1 10^3/uL (0.0-0.8) 02/21/23 06:52 Baso # (Auto) 0.1 10^3/uL (0.0-0.1) 02/21/23 06:52 Nucleated RBC % (auto) 0 % 02/21/23 06:52 Nucleated RBCs # 0.0 /100WBC 02/21/23 06:52 PT 13.00 SECONDS (12.1-14.9) 02/21/23 06:52 INR 0.96 (0.8-1.2) 02/21/23 06:52 Sodium 135 mmol/L (136-145) L 02/21/23 06:52 Potassium 4.4 mmol/L (3.5-5.1) 02/21/23 06:52 Chloride 100 mmol/L (98-107) 02/21/23 06:52 Carbon Dioxide 25 mmol/L (22-29) 02/21/23 06:52 Anion Gap 14.4 (5-19) 02/21/23 06:52 BUN 14 mg/dL (6-20) 02/21/23 06:52 Creatinine 0.9 mg/dL (0.7-1.2) 02/21/23 06:52 GFR Calculation 86.4 mL/min (90-130) L 02/21/23 06:52 Glucose 101 mg/dL (65-115) 02/21/23 06:52 Calculated Osmolality 281 mOsm/kg (285-295) L 02/21/23 06:52 Calcium 9.1 mg/dL (8.5-10.5) 02/21/23 06:52 Total Bilirubin 0.3 mg/dL (0.15-1.2) 02/21/23 06:52 AST 16 U/L (0-40) 02/21/23 06:52 ALT 19 U/L (0-41) 02/21/23 06:52 Alkaline Phosphatase 101 U/L (40-130) 02/21/23 06:52 Troponin T Baseline 9 ng/L (0-15) 02/21/23 06:52 Troponin T 120 Minute 8.56 ng/L (0-15) 02/21/23 08:50 Total Protein 7.0 g/dL (6.6-8.7) 02/21/23 06:52 Albumin 4.3 g/dL (3.5-5.2) 02/21/23 06:52 Globulin 2.7 g/dL (1.3-4.6) 02/21/23 06:52 EKG Data EKG 1: I personally reviewed and interpreted this EKG as follows: EKG interpretation date: 02/21/23 EKG interpretation time: 06:46 Prior EKG tracings: available for review Interpretation: EKG showed normal sinus rhythm with ventricular rate 75 beats minute, NV interval 173, QRS duration 110, QTc of 412, nonspecific T wave abnormality. EKG 2: I personally reviewed and interpreted this EKG as follows: EKG interpretation date: 02/21/23 EKG interpretation time: 08:51 Prior EKG tracings: available for review Interpretation: EKG shows ventricular rate of 70 bpm, normal sinus rhythm, NV interval 166, QRS duration 109, QTc of 410, incomplete right bundle branch block, left anterior fascicular block, moderate T wave abnormality, Discharge Plan Discharge Patient Disposition: Home Clinical Impression: Chest pain Qualifiers: Chest pain type: unspecified Qualified Code(s): R07.9 - Chest pain, unspecified Hypertension Qualifiers: Hypertension type: primary hypertension Qualified Code(s): I10 - Essential (primary) hypertension Condition: Stable Prescriptions: No Action atorvastatin 40 mg tablet 40 mg PO BEDTIME Qty: 90 3RF lisinopril 40 mg tablet 40 mg PO DAILY Qty: 90 3RF nitroglycerin 0.4 mg tablet, sublingual 0.4 mg sublingual Q5M PRN (Reason: chest pain) Qty: 30 3RF Rx Instructions: do not exceed 3 doses per episode clopidogrel 75 mg Tablet 75 mg PO DAILY Qty: 90 3RF aspirin 81 mg Tablet,Delayed Release (Dr/Ec) 81 mg PO DAILY Qty: 90 3RF metoprolol tartrate 50 mg Tablet 50 mg PO BID@0900,2100 Qty: 120 3RF Discharge Orders: Discharge ED (Routine); Ordered 02/21/23 Ordered By: Damian Hauser Referrals: Xuan Estrada FNP [Primary Care Provider] - 1 week Patient Instructions: Hypertension, Chest Pain (ED) Activity Restrictions/Additional Instructions: Please follow-up with your family doctor in the next 1 week. Please keep a blood pressure log and take your blood pressure at various times throughout the day. Please take this log to your next appointment. As your blood pressure medicine may need to be evaluated. If your chest pain comes back or worsens feel free to come back to the ER for further evaluation and treatment. Coding Level of Care Code ED Inspector And Clipper for Adwoa Leong
[2023-02-21 07:21] VITALS: BP 151/86; PULSE 79; O2SAT 97
[2023-02-21] MEDS: aspirin 81 mg Chew Tablet 324 MG PO (07:23)
[2023-02-21] MEDS: hyDRALAzine 20 mg/mL INJ 1 mL 10 MG IVP (07:24)
[2023-02-21 07:38] LABS: Alanine Aminotransferase 19 U/L (0-41); Albumin Level 4.3 g/dL (3.5-5.2); Alkaline Phosphatase 101 U/L (40-130); Anion Gap 14.4 (5-19); Aspartate Amino Transferase 16 U/L (0-40); Blood Urea Nitrogen 14 mg/dL (6-20); Calcium 9.1 mg/dL (8.5-10.5); Carbon Dioxide 25 mmol/L (22-29); Chloride 100 mmol/L (98-107); Creatinine Clr Calc Pharmacy 90.3985; Globulin 2.7 g/dL (1.3-4.6); Glomerular Filtration Rate 86.4 mL/min (90-130); Glucose 101 mg/dL (65-115); Osmolality Calculated 281 mOsm/kg (285-295); Potassium 4.4 mmol/L (3.5-5.1); Sodium 135 mmol/L (136-145); Total Bilirubin 0.3 mg/dL (0.15-1.2)
[2023-02-21 07:49] LABS: INR 0.96 (0.8-1.2)
[2023-02-21 07:50] LABS: Troponin(5th) Baseline 9 ng/L (0-15)
--- NOTE | 2023-02-21 08:52 | ECG_ITS ---
[facility] Test Date: 2023-02-21 Pat Name: Meir Ramsay Department: Room: Gender: Male Plc Engineer: : 1965 Requested By: Damian Hauser Order Number: [id number] Evelyne MD: Iram Albright M.D. Measurements Intervals [place] Rate: 70 P: 74 [place]: 166 QRS: -56 QRSD: 109 T: 80 QT: 389 QTc: 421 Interpretive Statements SINUS RHYTHM INCOMPLETE RIGHT BUNDLE BRANCH BLOCK LEFT ANTERIOR FASCICULAR BLOCK [QRS AXIS <= -45, QR IN I, RS IN II] MODERATE T-WAVE ABNORMALITY, CONSIDER LATERAL ISCHEMIA Compared to ECG 01/18/2022 09:13:03 Incomplete right bundle-branch block now present Left anterior fascicular block now present T-wave abnormality now present Possible ischemia now present Sinus arrhythmia no longer present Myocardial infarct finding no longer present Electronically Signed On 02-22-2023 12:28:55 CDT by Iram Albright M.D. [id number]
[2023-02-21 09:23] LABS: Troponin 5 2HR 8.56 ng/L (0-15)
[2023-02-21 09:30] VITALS: BP 150/92; PULSE 66; O2SAT 98
[2023-02-21 09:44] LABS: Troponin 5 2HR Delta -0.44 ABS# (0-10)
== END 2023-02-21 09:46 | disposition home or self-care (01) ==
PROVIDERS: Emergency Provider Emergency Medicine; PCP Nurse Practitioner Family
DX: R07.9 Chest pain, unspecified (principal); I10 Essential (primary) hypertension; Z79.82 Long term (current) use of aspirin; Z79.02 Long term (current) use of antithrombotics/antiplatelets; I25.10 Atherosclerotic heart disease of native coronary artery without angina pectoris; I25.2 Old myocardial infarction; F17.210 Nicotine dependence, cigarettes, uncomplicated
CPT/HCPCS: 71045; 80053; 84484; 85025; 85610; 93005; 96374; 99285; J0360

== ENCOUNTER → 2023-03-20 15:06 | Outpatient (BNVA) | payer OTHER, SELFPAY | PROVIDERS: PCP Nurse Practitioner Family; Visit Provider Internal Medicine | DX: R07.9 Chest pain, unspecified (principal) | CPT/HCPCS: 93005 ==

== ENCOUNTER 2023-03-20 21:14 | Observation (INO) | payer OTHER, SELFPAY ==
[2023-03-20] VITALS (35 sets, daily range): BP systolic 112; BP diastolic 72; PULSE 69–102; RESP 13–23; O2SAT 90–96; BMI 28.2
--- NOTE | 2023-03-20 21:14 | PM.HP ---
Providers/Chief Complaint Admitting Physician: Erick William M.D Primary Care Provider: SAVANA Sauceda Chief Complaint: Unstable angina History of Present Illness Meir Ramsay is a 58 year old male with past medical history of ST elevation [place] last year who has been having worsening chest pain symptoms for 1 month. He is using multiple nitros. Typical symptoms with radiation to arms. He is feeling dyspnea on exertion and extreme fatigue as well. EKG shows T wave inversions in the inferior leads. Review of Systems Const: Denies: fever(s) or chills Card: Reports: chest pain and dyspnea on exertion; Denies: palpitations, irregular heart rhythm, swelling of feet/ankles, lightheadedness, pre-syncope, orthopnea or leg pain with exertion Resp: Reports: dyspnea; Denies: productive cough or non-productive cough Musc: Denies: neck pain or back pain Neuro: Denies: headache(s) or dizziness Psych: Denies: anxiety, depression, suicidal ideation or homicidal ideation Willi/Lymph: Reports: easy bruising and easy bleeding Medications/Allergies Home Medications Medication Instructions Recorded Confirmed Last Taken Type aspirin 81 mg tablet,delayed 81 mg PO DAILY #90 tabs 01/19/22 03/20/23 03/20/23 08:00 Rx release clopidogrel 75 mg tablet 75 mg PO DAILY #90 tabs 01/19/22 03/20/23 03/20/23 08:00 Rx metoprolol tartrate 50 mg tablet 50 mg PO BID@0900,2100 #120 tabs 01/19/22 03/20/23 03/20/23 08:00 Rx nitroglycerin 0.4 mg sublingual 0.4 mg sublingual Q5M PRN chest 01/26/22 03/20/23 03/20/23 Rx tablet pain #30 tabs atorvastatin 40 mg tablet 40 mg PO BEDTIME #90 tabs 09/12/22 03/20/23 03/19/23 21:00 Rx lisinopril 20 mg tablet 20 mg PO BID 03/20/23 03/20/23 03/20/23 18:00 History metformin 500 mg tablet,extended 500 mg PO DAILY 03/20/23 03/20/23 03/20/23 08:00 History release 24 hr Allergies Allergy/AdvReac Type Severity Reaction Status Date / Time No Known Allergies Allergy Verified 03/20/23 11:31 PFSH Acute PFSH: Medical History Atherosclerosis of coronary artery Hypertension ST elevation (STEMI) myocardial infarction Tobacco abuse Social History Smoking and tobacco status: current every day smoker Vitals/I&O/Wt Last Vital Signs O2 Del Method Room Air, Nasal Cannula 03/20/23 20:11 Weight last 48 hrs Weight 180 lb 4 oz Physical Exam Narrative: GENERAL: Patient is alert, awake and oriented x3. [] NECK: No jugular vein distension. [] HEENT: No cyanosis. No icterus. No pallor. [] HEART: Regular S1 and S2. No murmur, rub or gallop. [] LUNGS: Clear to auscultate bilaterally. [] ABDOMEN: Soft CENTRAL NERVOUS SYSTEM: Grossly nonfocal. [] EXTREMITIES: Lower extremities with no edema Data 03/20/23 21:44 03/20/23 21:44 A&P Assessment and plan (1) Unstable angina: (2) Atherosclerosis of coronary artery: (3) Hypertension: Qualifiers: Hypertension type: primary hypertension Qualified Code(s): I10 - Essential (primary) hypertension Plan Patient has presented with worsening anginal symptoms consistent with unstable angina. N.p.o. past midnight. Plan for coronary angiogram with possible percutaneous coronary intervention in the morning. We will trend troponins. If significant uptrend, we will start on anticoagulation. Continue aspirin and Plavix. High intensity statin therapy. Attestations Medical Necessity Statement*: Care not expected to cross 2 midnights. Plan for coronary angiogram in the morning. Coding Level of Care Code Acute Code for Chg Fwd Diagnoses Unstable angina I20.0 Atherosclerosis of coronary artery I25.10 Hypertension I10 Hypertension type: primary hypertension
[2023-03-20 22:10] LABS: Anion Gap 16.8 (5-19); Blood Urea Nitrogen 12 mg/dL (8-23); Calcium 8.6 mg/dL (8.5-10.5); Carbon Dioxide 21 mmol/L (22-29); Chloride 97 mmol/L (98-107); Glomerular Filtration Rate 86.1 mL/min (90-130); Glucose 100 mg/dL (65-115); Osmolality Calculated 272 mOsm/kg (285-295); Potassium 3.8 mmol/L (3.5-5.1); Sodium 131 mmol/L (136-145)
[2023-03-20 22:12] LABS: Basophils # 0.1 10^3/uL (0.0-0.1); Basophils % 0.9 %; Eosinophils # 0.1 10^3/uL (0.0-0.8); Eosinophils % 1.5 %; Hematocrit 43.2 % (42.0-52.0); Hemoglobin 14.8 g/dL (11.7-16.6); Lymphocytes # 3.9 10^3/uL (0.8-4.8); Lymphocytes % 45.4 %; Mean Corpuscular HGB Conc 34.3 g/dL (30.0-36.0); Mean Corpuscular Volume 90.4 fl (80-94); Mean Platelet Volume 9.9 fL (7.4-10.4); Monocytes # 0.9 10^3/uL (0.2-0.9); Monocytes % 11.1 %; Neutrophils # 3.44 10^3/uL (1.8-7.7); Neutrophils % 40.5 %; Nucleated Red Blood Cells % 0 %; Platelet Count 214 10^3/cmm (130-400); Red Blood Count 4.78 10^6/uL (4.1-5.3); Red Cell Distribution Width 12.4 % (12.1-15.1); White Blood Count 8.5 10^3/uL (4.0-10.0)
[2023-03-20 22:14] LABS: Troponin(5th) Baseline 85 ng/L (0-15)
[2023-03-20] MEDS: dextrose 5%-sod chloride 0.45% 1,000 ML 75 ML IV (22:36)
[2023-03-21] VITALS (62 sets, daily range): BP systolic 123–172; BP diastolic 68–95; PULSE 50–80; RESP 10–22; TEMP 36.3–36.6; O2SAT 90–97
[2023-03-21 00:02] LABS: Troponin 5 2HR 77.54 ng/L (0-15)
[2023-03-21 00:10] LABS: Troponin 5 2HR Delta -7.46 ABS# (0-10)
[2023-03-21 04:32] LABS: Troponin 5 6HR 46.97 ng/L (0-15)
--- NOTE | 2023-03-21 06:16 | XACV_ITS ---
Exam Room: [facility] Ht: 170 cm Wt: 82 kg BSA: 1.98 m2 Gender: Male : 1965 Any Known Allergies: No known allergies Exam Priority: Routine Procedure(s): Procedure Description: Diagnostic procedure Procedure Description: PCI procedure Procedure Description: Drug Eluting Coronary Stent Procedure Description: PTCA Procedure Description: Miscellaneous Procedure Description: ACT Procedure Description: Coronary Angiography Procedure Description: Pressure Wire Diagnostic Cath Status: Urgent Diagnostic Findings * Left Main has no significant disease. * Proximal Circumflex: minimal 30% stenosis, DARIO: 3 flow. Patent prior stent. * Proximal Left Anterior Descending: obstructive 70% stenosis, DARIO: 3 flow. * Proximal Right Coronary Artery: significant 80% stenosis, DARIO: 3 flow. * Coronary angiography shows right dominance. PCI Status: Urgent PCI Indication: Other Interventional Findings * PROCEDURE DETAIL: We engaged RCA with JR4 guide catheter. IV heparin was administered with anticoagulation. He had 0.014 run-through guidewire was used to cross the stenosis. We then predilated the stenosis with 3.0 x 12 mm semicompliant balloon. This was followed by placement of 3.5 x 22 mm resolute Faby drug-eluting stent. We then post dilated the stent with 3.75 x 6 mm NC balloon. At this time final angiogram was performed that showed excellent stent expansion, no residual stenosis and DARIO-3 flow. We then turned our attention to LAD stenosis. We used XB 3.5 guide catheter to engage the vessel. iFR wire was advanced to left main artery where we did normalization. After normalization we advanced the wire into distal LAD. A value of 0.92 was obtained however significant drift was noted on pullback. We readvanced the wire after normalization at this time IFR value of 0.88 was obtained. No defect was noted at this time. Given the significant value of IFR went ahead and performed balloon angioplasty of proximal LAD with 3.0 x 12 mm semicompliant balloon. This was followed with placement of 3.0 x 22 mm resolute Faby drug-eluting stent. At this time final angiogram was performed that showed excellent stent expansion, no residual stenosis and DARIO-3 flow. Guidewire and catheter were removed. 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 * Proximal Left Anterior Descendin% stenosis treated with a AB TREK 3.00X12 RX BALLOON, and MDT R FABY 3.0X22 IVÁN. 0% residual stenosis, DARIO: 3 flow. * Proximal Right Coronary Artery: 80% stenosis treated with a AB TREK 3.00X12 RX BALLOON, MDT R FABY 3.5X22 IVÁN, and MDT NC EUPHORA RX [id number] BALLOON. 0% residual stenosis, DARIO: 3 flow. Conclusions 1. Severe proximal RCA stenosis status post revascularization with 1 stent. Severe proximal LAD stenosis s/p IFR and revascularization with 1 stent.. 2. Proximal Left Anterior Descending was treated with a Balloon, and Drug Eluting Stent. 3. Proximal Right Coronary Artery was treated with a Balloon, Drug Eluting Stent, and Balloon. Recommendations * Dual antiplatelet therapy with aspirin and plavix for atleast 1 year. * High intensity statin therapy. * Aggressive risk factor modification. * Outpatient cardiology follow up in 1-2 weeks. Interventional RX Recommendation: PCI w/o planned CABG Diagnostic RX Recommendation: PCI w/o planned CABG Anticoagulation: Heparin Pressures Phase:Rest AO : 90 / 63 ( 76 ) @ 10:05:00 AM 88 / 64 ( 77 ) @ 10:07:00 AM 90 / 64 ( 78 ) @ 10:08:00 AM 89 / 64 ( 77 ) @ 10:16:00 AM 106 / 75 ( 91 ) @ 10:17:00 AM 105 / 75 ( 90 ) @ 10:24:00 AM 143 / 71 ( 99 ) @ 10:32:00 AM 137 / 68 ( 95 ) @ 10:43:00 AM Clinical Evaluation EBL: 5mL-10mL Procedural Details Procedure Consent Obtained. Current Diagnosis : Chest Pain. Pre-Procedure Time Out. Identified patient by full name and date of as verbalized by the patient/guarantor. Does the consent match the physician's order: Yes. Accurate & Complete Informed Consent: Yes. Inpatient/Outpatient History & Physical on Chart: Yes. If H&P is completed, is and addenduem needed: No; If yes, is the addendum complete: N/A. Visualize and Verify Site with Patient/Guarantor: N/A. Relevant Radiology Images available: Yes. Pre-op teaching completed and patient verbalized understanding. The risks, benefits, and alternatives of sedation and/or procedure were discussed by physician. The patient agrees to continue. Procedure started. [facility] Clinical Fraility Score: 3: Managing Well. Content Development Specialist Indications: ACS > 24 hours. Chest Pain Symptom Assessment: Typical Angina Symptoms. Correct patient, site and procedure confirmed by cath team. Current diagnosis: NSTEMI. PERRLA. Strong, equal hand motor power connector bilaterally. Lungs clear x 5 lobes. IV Site on Arrival: 20 gauge in the left forearm. IV Fluids: 0.9% NaCl at KVO. 400 mL infused prior to veterinarian laboratory animal care. Pre Procedural Pulses: right radial was 3+. Oxygen started at 2liters/min via nasal canula. right groin was prepped with chloroprep then draped in the usual sterile fashion. right radial was prepped with chloroprep then draped in the usual sterile fashion. Baseline sample Acquired. HR: 70 BPM. Physician arrived. Physician scrubbed in. Immediate Pre-Procedure Time Out. Correct Patient: Yes; Correct Procedure: Yes; Correct Site: Yes; Correct Patient Position: Yes; Correct Supplies: Yes; Dried Flammable Prep: Yes; Blood Products Available: N/A;. Lidocaine 1% infiltrated to the right radial. Arterial access obtained. A 5 [facility] lucian TIG catheter in over wire. Multiple views taken of left coronary artery. Catheter redirected to the RCA. Multiple views taken of right coronary artery. Catheter removed over the exchange wire. 6 st lucian JR 4 guide catheter was inserted over the wire. Runthrough guidewire was advanced through the guide catheter to lesion in the prox RCA. Inflation number : 1 A AB TREK 3.00X12 RX BALLOON was prepped and advanced across the Prox RCA , then inflated to 8 LAURA for 0:13 seconds. Inflation number: 2 The AB TREK 3.00X12 RX BALLOON was reinflated across the Prox RCA, to 8 LAURA for 0:14 seconds. Inflation number: 3 The AB TREK 3.00X12 RX BALLOON was reinflated across the Prox RCA, to 8 LAURA for 0:11 seconds. Inflation number: 4 The AB TREK 3.00X12 RX BALLOON was reinflated across the Prox RCA, to 8 LAURA for 0:16 seconds. Balloon out. Inflation Number : 5 A MDT R FABY 3.5X22 IVÁN -Lot Number# _[id number] EXP: 10/11/2025 was prepped and advanced across the Prox RCA. The stent was deployed at 12 LAURA for 0:22 seconds. Stent balloon out over wire. Results checked. Inflation number : 6 A MDT NC EUPHORA RX [id number] BALLOON was prepped and advanced across the Prox RCA , then inflated to 12 LAURA for 0:20 seconds. Inflation number: 7 The MDT NC EUPHORA RX [id number] BALLOON was reinflated across the Prox RCA, to 18 LAURA for 0:24 seconds. Inflation number: 8 The MDT NC EUPHORA RX [id number] BALLOON was reinflated across the Prox RCA, to 18 LAURA for 0:18 seconds. Balloon out. Results checked. Wire out. Results checked. ACT drawn. Results out of range seconds. Therapeutic limits - pre-heparin administration 90-150 seconds and monitoring heparin during a vascular procedure >250 seconds. Guide catheter out. [address] st lucian XB 3.5 guide catheter was inserted over the wire. IFR guidewire was advanced through the guide catheter to lesion in the prox LAD. Results: 0.92. Wire out. Results checked. ACT drawn. Results out of range seconds. Therapeutic limits - pre-heparin administration 90-150 seconds and monitoring heparin during a vascular procedure >250 seconds. IFR guidewire was advanced through the guide catheter to lesion in the prox LAD. Results: 0.88. Inflation number: 1 The AB TREK 3.00X12 RX BALLOON was reinflated across the Prox LAD, to 8 LAURA for 0:15 seconds. Balloon out. Inflation Number : 2 Karlee Armstrong FABY 3.0X22 IVÁN -Lot Number# _[id number] EXP: 09/17/2025 was prepped and advanced across the Prox LAD. The stent was deployed at 12 LAURA for 0:20 seconds. Stent balloon out over wire. Wire out. Guide catheter out. ACT drawn. Results 324 seconds. Therapeutic limits - pre-heparin administration 90-150 seconds and monitoring heparin during a vascular procedure >250 seconds. Physician scrubbed out. Vital chart was stopped. A TR Band was successful obtaining hemostatsis at the Right Radial artery insertion site. Post Procedure: Pulses reassessed and unchanged. PERRLA. Strong, equal hand motor power connector bilaterally. No VTE prophylaxis required. Medication's Wasted: Nitro = 49.8 mg. Medication's Wasted: Heparin = 2000 units. Medication's Wasted: Other = Fentanyl 25 mcg. Total IV fluids: 85 mL. Complications: None. Estimated blood loss: 5mL-10mL. Responsiveness - Normal response to verbal stimuli; alert and oriented, PERRLA. Airway - Unaffected, no intervention required; spontaneous ventilation. Circulation: W/N/L, pulses unchanged. Nausea/Vomiting: No. Procedure completed. Patient transferred by wheelchair to 1st floor. Access Site Site: Right Radial artery Sheath Size: 6 Fr Hemostasis Method: TR Band Hemostasis Success: Successful Procedure Medications Start: 9:01 AM Stop: 9:01 AM Medication: Nitrogylcerin Amount: 200 mcg Route: I.A. Start: 9:02 AM Stop: 9:02 AM Medication: Heparin Amount: 5000 units Route: I.V. Start: 9:05 AM Stop: 9:05 AM Medication: Versed Amount: 1 mg Route: I.V. Start: 9:05 AM Stop: 9:05 AM Medication: Fentanyl Amount: 50 mcg Route: I.V. Start: 9:12 AM Stop: 9:12 AM Medication: Heparin Amount: 3000 units Route: I.V. Start: 9:35 AM Stop: 9:35 AM Medication: Versed Amount: 1 mg Route: I.V. Start: 9:35 AM Stop: 9:35 AM Medication: Fentanyl Amount: 50 mcg Route: I.V. Start: 9:45 AM Stop: 9:45 AM Medication: Heparin Amount: 1000 units Route: I.V. Start: 9:54 AM Stop: 9:54 AM Medication: Plavix Amount: 600 mg Route: P.O. I, the attending physician, have reviewed and verified all procedure medications. Yes, all medications given per verbal order History/Risk Factors Hypertension: Yes Dyslipidemia: No Peripheral Arterial Disease (PAD): No Myocardial Infarction (MD): Yes Obesity: No Renal Disease: No Tobacco Use: Current/Recent(w/in 1 year) Prior Interventions PCI: Yes CABG: No Valve Surgery: No Date of PCI: 01/18/2022 Report Signatures Finalized by Erick William MD on 03/28/2023 11:05 AM
[2023-03-21] MEDS: clopidogrel 75 mg Tablet PO (08:06)
[2023-03-21] MEDS: metoprolol tartrate 50 mg Tablet PO ×2 (08:06→19:21)
[2023-03-21] MEDS: aspirin 81 mg EC Tablet PO (08:06)
[2023-03-21] MEDS: diphenhydrAMINE 50 mg Capsule PO (08:07)
[2023-03-21] MEDS: lisinopril 20 mg Tablet PO ×2 (08:07→19:22)
--- NOTE | 2023-03-21 08:57 | P.HPUD_ITS ---
Surgery/Procedure H&P Update DATE OF PROCEDURE: March 21, 2023 DATE H&P PERFORMED: 03/20/23 H&P UPDATE INFORMATION: I have reviewed H&P completed within last 30 days, I have examined patient prior to procedure and No changes to prior documentation PREOP DIAGNOSIS: Unstable angina PRIMARY INDICATION FOR PROCEDURE: Unstable angina PLANNED PROCEDURE: Operation Date: 03/21/23 08:30 Proposed Procedures p Cardiac Catheterization c Possible PCI(Not Applicable) - Erick William M.D Possible percutaneous coronary intervention PATIENT REASSESSED PRIOR TO SEDATION, WITH NO CHANGE NOTED: Yes PHYSICAL EXAM: alert, oriented x 3, clear to auscultation bilaterally and re gular rate & rhythm AIRWAY EVAL/ANESTHESIA PLAN: normal airway, ASA III, Local Anesthesia, Risks, benefits & alternatives of sedation and/or procedure discussed and Patient agr ees to continue as planned
--- NOTE | 2023-03-21 10:40 | PC.NURSE ---
1005: TR Band to patients right wrist clean, dry, et intact. No drainage or hematoma noted. Vitals stable. No c/o pain or discomfort. Will continue to monitor 1035:Transfer orders received. TR Band to patients right wrist clean, dry, et intact. No drainage or hematoma noted. Vitals stable. No c/o pain or discomfort. Report giving to LEWIS Terrell. Patient transferred to CSU from [facility] via wheelchair. All belongings sent with patient.
--- NOTE | 2023-03-21 11:13 | P.PN_ITS ---
Subjective Subjective: Patient had successful revascularization of proximal RCA with 1 stent and proximal LAD with 1 stent. No chest pain Vitals/I&O/Wt Last Vital Signs Temp 97.8 F 03/21/23 08:00 Pulse 50 L 03/21/23 10:05 Resp 16 03/21/23 10:05 BP 141/88 03/21/23 10:05 Pulse Ox 94 03/21/23 08:00 O2 Del Method Room Air 03/21/23 10:05 O2 Flow Rate 98 03/21/23 10:05 03/20/23 03/21/23 03/21/23 22:59 06:59 14:59 Output Total 750 / 750 Balance -750 / -750 Weight last 48 hrs Weight 180 lb 4 oz Physical Exam Narrative: GENERAL: Patient is alert, awake and oriented x3. [] NECK: No jugular vein distension. [] HEENT: No cyanosis. No icterus. No pallor. [] HEART: Regular S1 and S2. No murmur, rub or gallop. [] LUNGS: Clear to auscultate bilaterally. [] ABDOMEN: Soft CENTRAL NERVOUS SYSTEM: Grossly nonfocal. [] EXTREMITIES: Lower extremities with no edema Data 03/20/23 21:44 03/20/23 21:44 A&P Assessment and plan (1) Unstable angina: (2) Atherosclerosis of coronary artery: (3) Hypertension: Qualifiers: Hypertension type: primary hypertension Qualified Code(s): I10 - Essential (primary) hypertension Plan Patient had successful revascularization of prox RCA and prox LAD today. Continue aspirin and Plavix High intentsity statin therapy Initial troponin was elevated but did not trend up If patient is stable by tomorrow, will be discharged home. Attestations Medical Necessity Statement*: Care expected to cross 2 midnights. Patient had revascularization of prox RCA and LAD with 2 stents today. Will observe in the [facility]opital today, likely discharge home tomorrow. Coding Level of Care Code Acute Code for [facility] Diagnoses Unstable angina I20.0 Atherosclerosis of coronary artery I25.10 Hypertension I10 Hypertension type: primary hypertension
[2023-03-21] MEDS: sodium chloride 0.9% 1,000 ML 100 ML IV (12:21)
[2023-03-21] MEDS: atorvastatin 40 mg Tablet PO (19:22)
[2023-03-22 03:02] LABS: Basophils # 0.1 10^3/uL (0.0-0.1); Basophils % 0.9 %; Eosinophils # 0.1 10^3/uL (0.0-0.8); Eosinophils % 1.5 %; Hematocrit 42.6 % (42.0-52.0); Hemoglobin 14.4 g/dL (11.7-16.6); Lymphocytes # 2.3 10^3/uL (0.8-4.8); Lymphocytes % 29.8 %; Mean Corpuscular HGB Conc 33.8 g/dL (30.0-36.0); Mean Corpuscular Volume 91.8 fl (80-94); Mean Platelet Volume 9.8 fL (7.4-10.4); Monocytes % 12.6 %; Neutrophils # 4.27 10^3/uL (1.8-7.7); Neutrophils % 54.8 %; Nucleated Red Blood Cells % 0 %; Platelet Count 202 10^3/cmm (130-400); Red Blood Count 4.64 10^6/uL (4.1-5.3); Red Cell Distribution Width 12.9 % (12.1-15.1); White Blood Count 7.8 10^3/uL (4.0-10.0)
[2023-03-22 03:27] LABS: Anion Gap 13.4 (5-19); Blood Urea Nitrogen 17 mg/dL (8-23); Calcium 8.8 mg/dL (8.5-10.5); Carbon Dioxide 22 mmol/L (22-29); Chloride 107 mmol/L (98-107); Glomerular Filtration Rate 76.2 mL/min (90-130); Glucose 137 mg/dL (65-115); Osmolality Calculated 290 mOsm/kg (285-295); Potassium 4.4 mmol/L (3.5-5.1); Sodium 138 mmol/L (136-145)
[2023-03-22 03:45] VITALS: BP 140/83; PULSE 65; RESP 17; TEMP 36.7; O2SAT 93
[2023-03-22 07:33] VITALS: BP 142/80; PULSE 63; RESP 16; TEMP 36.5; O2SAT 95
--- NOTE | 2023-03-22 08:03 | P.DS_ITS ---
Discharge Providers Date of Admission: 03/20/23 21:14 Date of Discharge: March 22, 2023 Attending Provider at Admission: Erick William M.D Attending Provider at Discharge: Erick William M.D Primary Care Provider: SAVANA Sauceda Diagnoses at Discharge Discharge Diagnosis (1) Unstable angina: Status: Inactive (2) Atherosclerosis of coronary artery: Status: Acute (3) Hypertension: Status: Acute Qualifiers: Hypertension type: primary hypertension Qualified Code(s): I10 - Essential (primary) hypertension Reason for Visit Reason for Visit: Unstable angina Brief History: 58 year old male with past medical history of ST elevation [place] last year who has been having worsening chest pain symptoms for 1 month.? He is using multiple nitros.? Typical symptoms with radiation to arms.? He is feeling dyspnea on exertion and extreme fatigue as well. EKG shows T wave inversions in the inferior leads. Hospital Course Hospital Course Coronary angiogram demonstrated severe proximal LAD stenosis that underwent successful revascularization with 1 stent. He also had a severe proximal RCA stenosis for which 1 stent was put in. Patient was observed overnight and did well. No complaints of chest pain. He was discharged home in a stable condition. Physical Exam Narrative: GENERAL: Patient is alert, awake and oriented x3. [] NECK: No jugular vein distension. [] HEENT: No cyanosis. No icterus. No pallor. [] HEART: Regular S1 and S2. No murmur, rub or gallop. [] LUNGS: Clear to auscultate bilaterally. [] ABDOMEN: Soft CENTRAL NERVOUS SYSTEM: Grossly nonfocal. 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 Routine Exams 03/21/23 06:16 Taken Laboratory Results WBC 7.8 10^3/uL (4.0-10.0) 03/22/23 02:50 RBC 4.64 10^6/uL (4.1-5.3) 03/22/23 02:50 Hgb 14.4 g/dL (11.7-16.6) 03/22/23 02:50 Hct 42.6 % (42.0-52.0) 03/22/23 02:50 MCV 91.8 fl (80-94) 03/22/23 02:50 MCH 31.0 pg (28.0-34.0) 03/22/23 02:50 MCHC 33.8 g/dL (30.0-36.0) 03/22/23 02:50 RDW 12.9 % (12.1-15.1) 03/22/23 02:50 Plt Count 202 10^3/cmm (130-400) 03/22/23 02:50 MPV 9.8 fL (7.4-10.4) 03/22/23 02:50 Neut % (Auto) 54.8 % 03/22/23 02:50 Lymph % (Auto) 29.8 % 03/22/23 02:50 [place] % (Auto) 12.6 % 03/22/23 02:50 Eos % (Auto) 1.5 % 03/22/23 02:50 Baso % (Auto) 0.9 % 03/22/23 02:50 Neut # (Auto) 4.27 10^3/uL (1.8-7.7) 03/22/23 02:50 Lymph # (Auto) 2.3 10^3/uL (0.8-4.8) 03/22/23 02:50 [place] # (Auto) 1.0 10^3/uL (0.2-0.9) H 03/22/23 02:50 Eos # (Auto) 0.1 10^3/uL (0.0-0.8) 03/22/23 02:50 Baso # (Auto) 0.1 10^3/uL (0.0-0.1) 03/22/23 02:50 Nucleated RBC % (auto) 0 % 03/22/23 02:50 Nucleated RBCs # 0.0 /100WBC 03/22/23 02:50 Sodium 138 mmol/L (136-145) 03/22/23 02:50 Potassium 4.4 mmol/L (3.5-5.1) 03/22/23 02:50 Chloride 107 mmol/L (98-107) 03/22/23 02:50 Carbon Dioxide 22 mmol/L (22-29) 03/22/23 02:50 Anion Gap 13.4 (5-19) 03/22/23 02:50 BUN 17 mg/dL (8-23) 03/22/23 02:50 Creatinine 1.0 mg/dL (0.7-1.2) 03/22/23 02:50 GFR Calculation 76.2 mL/min (90-130) L 03/22/23 02:50 Glucose 137 mg/dL (65-115) H 03/22/23 02:50 Calculated Osmolality 290 mOsm/kg (285-295) 03/22/23 02:50 Calcium 8.8 mg/dL (8.5-10.5) 03/22/23 02:50 Troponin T Baseline 85 ng/L (0-15) H 03/20/23 21:44 Troponin T 120 Minute 77.54 ng/L (0-15) H 03/20/23 23:30 Delta Troponin T -7.46 ABS# (0-10) L 03/20/23 23:30 Troponin T Hi Sens 6Hr 46.97 ng/L (0-15) H 03/21/23 02:55 Troponin T Hi Sens 6Hr Delta -38.03 ng/L (0-12) L 03/21/23 02:55 Vitals Last Vital Signs Temp 97.7 F 03/22/23 07:33 Pulse 63 03/22/23 07:33 Resp 16 03/22/23 07:33 BP 142/80 03/22/23 07:33 Pulse Ox 95 03/22/23 07:33 O2 Del Method Room Air 03/22/23 07:33 O2 Flow Rate 98 03/21/23 10:05 Discharge Plan Discharge Patient Disposition: Home Condition: Stable Prescriptions: Continued nitroglycerin 0.4 mg tablet, sublingual 0.4 mg sublingual Q5M PRN (Reason: chest pain) Qty: 30 3RF Rx Instructions: do not exceed 3 doses per episode clopidogrel 75 mg Tablet 75 mg PO DAILY Qty: 90 3RF aspirin 81 mg Tablet,Delayed Release (Dr/Ec) 81 mg PO DAILY Qty: 90 3RF metoprolol tartrate 50 mg Tablet 50 mg PO BID@0900,2100 Qty: 120 3RF lisinopril 20 mg tablet 20 mg PO BID Held metformin 500 mg tablet extended release 24 hr 500 mg PO DAILY Hold Instructions: Resume on 03/24/23. No Action atorvastatin 80 mg tablet 80 mg PO BEDTIME Qty: 90 3RF Discharge Orders: Discharge Order (Routine); Ordered 03/22/23 Ordered By: Ercik William Referrals: Erick William M.D [Physician] - (Your Dr. William follow up appointment will be scheduled while you are at your Geraldine Reyes appointment. Thank you.) Geraldine Reyes FNP [Nurse Practitioner] - 03/27/23 9:15 am Discharge Diet: Cardiac Discharge Activity: Increase activity as tolerated Patient Instructions: Coronary Angioplasty (DC), Heart Healthy Diet (DC), Opioid Safety, Post Angiogram Home Care Instructions Discharge Attestations Time Spent in Discharge Care*: greater than 30 min Quality Metrics Clinical Quality Measures [ No reported AMI, CVA or VTE this stay] Coding Level of Care Code Acute Code for Chg Fwd Diagnoses Unstable angina I20.0 Atherosclerosis of coronary artery I25.10 Hypertension I10 Hypertension type: primary hypertension
== END 2023-03-22 08:40 | disposition home or self-care (01) ==
PROVIDERS: Admitting Provider Internal Medicine; PCP Nurse Practitioner Family; Visit Provider Internal Medicine
DX: I25.110 Atherosclerotic heart disease of native coronary artery with unstable angina pectoris (principal); I10 Essential (primary) hypertension; F17.200 Nicotine dependence, unspecified, uncomplicated; Z79.02 Long term (current) use of antithrombotics/antiplatelets; Z79.82 Long term (current) use of aspirin; R94.31 Abnormal electrocardiogram [ECG] [EKG]; I25.2 Old myocardial infarction
CPT/HCPCS: 36415; 80048; 84484; 85025; 85347; 92920; 92921; 93454; 93571; 99152; 99153; C1725; C1769; C1874; C1887; C1894; C9600; C9601; G0378; G0379; J1644; J2250; J3010; J3490; J7030; J7799; Q0163; Q9967

== ENCOUNTER → 2023-03-27 09:43 | Outpatient (BNVA) | payer OTHER, SELFPAY | PROVIDERS: PCP Nurse Practitioner Family; Visit Provider Nurse Practitioner Family | DX: I25.10 Atherosclerotic heart disease of native coronary artery without angina pectoris (principal) | CPT/HCPCS: 36415; 80048; 80061 ==

== ENCOUNTER 2025-06-23 11:57 | Outpatient (CLI) | payer SELFPAY ==
--- NOTE | 2025-06-23 | ECG_ITS ---
[employer] Test Date: 2025-06-23 Pat Name: Meir Ramsay Department: Room: Gender: Male Blending Technician: : 1965 Requested By: Xuan Estrada Order Number: [id number] Stubbs MD: John Kennedy M.D. Interpretive Statements Procedure: The patient exercised for 5 minutes and the 13 seconds on the treadmill using the Chuck protocol. The patient achieved a maximum heart rate of 138 bpm which was 87% of the patient's maximal predicted heart rate. The patient reached 7 METS. The patient's resting blood pressure was 144/84 with a heart rate of 100 bpm. The resting EKG showed sinus rhythm with incomplete right bundle branch block and left anterior fascicular block. There were no ST or T wave changes during the stress test or in recovery. The maximum blood pressure was 204/82 mmHg. At the end of recovery the patient's blood pressure was 137/80 with a heart rate of 109 bpm. Findings: CONCLUSION: 1. Exercise capacity was average for age. 2. Heart rate response was appropriate. 3. Blood pressure response was appropriate. 4. No arrythmias or symptoms of angina during exercise. 5. Stress test without evidence of ischemia. Electronically Signed On 06-23-2025 18:30:34 CDT by John Kennedy M.D. [email or web address]
[2025-06-23 12:42] VITALS: BMI 28.0
[2025-06-23 13:08] VITALS: BP 136/78; PULSE 108
== END 2025-06-23 11:58 | disposition home or self-care (01) ==
PROVIDERS: PCP Nurse Practitioner Family; Visit Provider Nurse Practitioner Family
DX: I25.10 Atherosclerotic heart disease of native coronary artery without angina pectoris (principal)
CPT/HCPCS: 93017